=== PATIENT | male | born 1945 | race African-American/Black ===

== ENCOUNTER 2022-09-02 14:48 | Emergency (ER) | payer SELFPAY ==
[~2022-09-02] VITALS: Ht 170.2 cm; Wt 65.0 kg
[2022-09-02 14:53] VITALS: BP 84/60
[2022-09-02] MEDS ORDERED: ASPIRIN 81MG TABLET PO ONE (15:15)
[2022-09-02] MEDS ORDERED: SODIUM CHLORIDE 0.9% 1,000 ML IV ONE (15:15)
== END 2022-09-02 16:26 | disposition left against medical advice (07) ==
LOC: ER 14:48
DX: R07.89 Other chest pain (principal)
CPT/HCPCS: 93005; 99283; J7030

== ENCOUNTER 2022-09-25 14:59 | Emergency (ER) | payer OTHER ==
[~2022-09-25] VITALS: Ht 177.8 cm; Wt 70.0 kg
[2022-09-25 15:07] VITALS: BP 110/66
== END 2022-09-25 15:39 | disposition left against medical advice (07) ==
LOC: ER 15:12
DX: Z53.21 Procedure and treatment not carried out due to patient leaving prior to being seen by health care provider (principal); I49.9 Cardiac arrhythmia, unspecified
CPT/HCPCS: 93005